=== PATIENT | male | born 1970 | race Caucasian/White ===

== ENCOUNTER 2021-03-25 06:05 | Day surgery (SDC) | payer OTHER ==
[~2021-03-25] VITALS: Ht 165.1 cm; Wt 94.5 kg
[~2021-03-25 06:05] MED LIST: ASPIR 8181 MG PO; Augmentin 875-1 EACH PO; CODGUAEL PO; ERGO50000 PO; GAVILAX17 GM PO; HYDCHL12.5 PO; HYDR1TAB94 PO; IBUP800; KETO10 PO; Lisinopril2.5 MG PO; MAGCIT300 PO; METF500 PO; NAPR220 PO; Zofran Odt4 MG PO
--- NOTE | 2021-03-25 07:11 | NUR ---
03/25/21 0711 DARON CAUSEY 2 GM IVPB HANGING FOR OR TO ADMINISTER
--- NOTE | 2021-03-25 08:47 | NUR ---
03/25/21 0847 Roz Quispe PT. OPENS EYES ON COMMAND THEN BACK TO SLEEP. PT. SNORING WHEN BACK TO SLEEP. PT. DENIES PAIN OR NAUSEA.
== END 2021-03-25 09:44 | disposition home or self-care (01) ==
LOC: ORSCSDS 06:05
PROVIDERS: Podiatrist Foot & Ankle Surgery
PROC: 0QBL0ZZ Excision of Right Tarsal, Open Approach (ICD-10-PCS; principal; 2021-03-25 07:30)
PROC: 0L8N0ZZ Division of Right Lower Leg Tendon, Open Approach (ICD-10-PCS; principal; 2021-03-25 07:30)
DX: M24.571 Contracture, right ankle (principal); M65.28 Calcific tendinitis, other site; I10 Essential (primary) hypertension; E11.9 Type 2 diabetes mellitus without complications; Z79.84 Long term (current) use of oral hypoglycemic drugs; Z79.899 Other long term (current) drug therapy
CPT/HCPCS: 82947; C1713; J0171; J0690; J1100; J1885; J2250; J2370; J2405; J2704; J3010; J7120